=== PATIENT | male | born 1955 | race Caucasian/White ===

== ENCOUNTER 2017-12-03 22:44 | Inpatient (IN) | payer BC ==
[~2017-12-03] VITALS: Ht 185.4 cm; Wt 104.8 kg
[~2017-12-03 22:44] MED LIST: ALBUAER3 INH; DILT0.05 PO; EMTR1TAB4 PO; IPRASOL INH; VENTAER INH; [UNRECOGNIZED DRUG - CODE] PO
[2017-12-04] VITALS (7 sets, daily range): BP systolic 129–150; BP diastolic 81–83; PULSE 90–107; RESP 18–20; TEMP 96.3–98.1; O2SAT 92–94
[2017-12-04] MEDS ORDERED: SODIUM CHLORIDE 0.9% FLUSH 10 ML FLUSH IV FLUSH PRN
[2017-12-04] MEDS ORDERED: ACETAMINOPHEN 325 MG TAB PO PRN
[2017-12-04] MEDS ORDERED: ONDANSETRON HCL 4 MG/2 ML VIAL IVP PRN
[2017-12-04] MEDS: RESP: ALBUTEROL 2.5 MG/IPRATROPIUM 0.5 MG NEB (SCH) NEB ×3 (02:59→16:05)
[2017-12-04] MEDS: RESP: ALBUTEROL 2.5 MG/IPRATROPIUM 0.5 MG NEB (PRN) NEB ×2 (07:11→13:58)
[2017-12-04] MEDS: SODIUM CHLORIDE 0.9% FLUSH 10 ML FLUSH IV FLUSH SCH ×2 (08:53→20:08)
[2017-12-04] MEDS ORDERED: ENOXAPARIN SODIUM 40 MG/0.4 ML SYRINGE SQ SCH (09:00)
--- NOTE | 2017-12-04 09:55 | HHI.HP ---
[facility] Primary Care Physician Timothy Xiong MD Admission Diagnosis Diagnoses: Chief Complaint: Asthma attack Travel History International Travel<30 Days: No Contact w/Intl Traveler <30 Da: No History of Present Illness 62-year-old white male being admitted for acute hypoxic respiratory failure secondary to an asthma attack. Patient reports being in his usual state of health until about sometime yesterday when he began experiencing an asthma attack manifested with increased shortness of breath and coughing. Patient states that he was taking his albuterol nebulizer [id number] to no avail and thus he decided come to the emergency department. He denies having any chest pain. He reports having an oxygen saturation 80s in the emergency department. Denies having any cyanosis of his lips or finger tips. Denies feeling any fevers or chills. In the ER he was given steroids and started on DuoNeb's. Patient states that his last asthma attack has not happened for a long time. Says he's take Symbicort but he thought it would not give good long-term relief. Patient states that he has a past medical history significant for HIV and is on antiviral therapy for this. He says his CD4 count was somewhere in the 400s and is managed by a physician for this. Review of Systems Except as stated in HPI: all other systems reviewed are Neg Past Family Social History Past Medical History Unspecified arrhythmia Allergies: Coded Allergies: No Known Allergies (Unverified , 10/02/17) Family History Patient denies any significant family health history. Social History Says he stopped smoking years ago. Denies illicit drug use. Thinks he got HIV from sexual contact. Physical Exam Vital Signs Vital Signs Date Time Temp Pulse Resp B/P (MAP) Pulse Ox O2 Delivery O2 Flow Rate FiO2 12/04/17 08:00 96.3 90 18 137/83 (101) 93 12/04/17 07:12 93 Nasal Cannula 3.00 12/04/17 04:00 98.0 97 20 139/81 (100) 94 12/04/17 03:00 94 Nasal Cannula 3.00 Physical Exam VS: afebrile GENERAL: NAD, lying in bed, awake, alert SKIN: Warm and dry. EYES: No scleral icterus. No injection or drainage. ENT: No nasal bleeding or discharge. Mucous membranes pink and moist. CARDIOVASCULAR: Regular rate and rhythm. no murmurs RESPIRATORY: No accessory muscle use. Minimal wheezing heard in bilateral lung franco with minimally labored breathing. GASTROINTESTINAL: Abdomen soft, non-tender, nondistended. Extremities: No clubbing, cyanosis, or edema. No obvious deformities. MUSCULOSKELETAL: grossly intact ROM with 5/5 strength in upper and lower extremities proximally; adequate muscle bulk and tone for age and habitus NEUROLOGICAL: Awake and alert. No obvious cranial nerve deficits. No facial droop nor slurred speech noted. PSYCHIATRIC: Appropriate mood and affect; insight and judgment normal. Imaging Independent review the chest x-ray obtained from emergency department and it appears clear. Caprini VTE Risk Assessment Caprini VTE Risk Assessment: Mod/High Risk (score >= 2) Caprini Risk Assessment Model Point Value = 1 Point Value = 2 Point Value = 3 Point Value = 5 Age 41-60 Minor surgery BMI > 25 kg/m2 Swollen legs Varicose veins or History of unexplained or recurrent spontaneous Oral contraceptives or hormone replacement Sepsis (< 1 month) Serious lung disease, including pneumonia (< 1 month) Abnormal pulmonary function Acute myocardial infarction Congestive heart failure (< 1 month) History of inflammatory bowel disease Medical patient at bed rest Age 61-74 Arthroscopic surgery Major open surgery (> 45 min) Laparoscopic surgery (> 45 min) Malignancy Confined to bed (> 72 hours) Immobilizing plaster cast Central venous access Age >= 75 History of VTE Family history of VTE Factor V Leiden Prothrombin [id number] Lupus anticoagulant Anticardiolipin antibodies Elevated serum homocysteine Heparin-induced thrombocytopenia Other congenital or acquired thrombophilia Stroke (< 1 month) Elective arthroplasty Hip, pelvis, or leg fracture Acute spinal cord injury (< 1 month) Prophylaxis Regimen Total Risk Factor Score Risk Level Prophylaxis Regimen 0-1 Low Early ambulation 2 Moderate Order ONE of the following: *Sequential Compression Device (SCD) *Heparin 5000 units SQ BID 3-4 Higher Order ONE of the following medications: *Heparin 5000 units SQ TID *Enoxaparin/Lovenox 40 mg SQ daily (WT < 150 kg, CrCl > 30 mL/min) *Enoxaparin/Lovenox 30 mg SQ daily (WT < 150 kg, CrCl > 10-29 mL/min) *Enoxaparin/Lovenox 30 mg SQ BID (WT < 150 kg, CrCl > 30 mL/min) AND/OR *Sequential Compression Device (SCD) 5 or more Highest Order ONE of the following medications: *Heparin 5000 units SQ TID (Preferred with Epidurals) *Enoxaparin/Lovenox 40 mg SQ daily (WT < 150 kg, CrCl > 30 mL/min) *Enoxaparin/Lovenox 30 mg SQ daily (WT < 150 kg, CrCl > 10-29 mL/min) *Enoxaparin/Lovenox 30 mg SQ BID (WT < 150 kg, CrCl > 30 mL/min) AND *Sequential Compression Device (SCD) Assessment and Plan Assessment and Plan Acute hypoxic respiratory failure secondary to asthma exacerbation - Continue steroids and oxygen and DuoNeb's HIV - Continue home medications Continue home cardizem. Pt can be discharged evening solumedrol and decadron and duoneb dose if clinically stable. Addendum: Patient's hypoxia had resolved and his shortness of breath had also resolved. On reexamination his wheezes were gone. Has met maximal benefit from hospitalization and is clinically stable for discharge. Physician Certification 2 Midnight Certification Type: Admission for Inpatient Services Order for Inpatient Services The services are ordered in accordance with Medicare regulations or non- Medicare payer requirements, as applicable. In the case of services not specified as inpatient-only, they are appropriately provided as inpatient services in accordance with the 2-midnight benchmark. Estimated LOS (days): 2 2 days is the estimated time the patient will need to remain in the hospital, assuming treatment plan goals are met and no additional complications. Post-Hospital Plan: Home Zach Greenwood MD Dec 04, 2017 09:55
[2017-12-04] MEDS ORDERED: methylPREDNISolone SOD SUCC 125 MG/2 ML VIAL IV PUSH ONE ×2 (10:00→18:30)
[2017-12-04] MEDS ORDERED: DILTIAZEM-CD 180 MG CAP ER PO SCH (10:00)
[2017-12-04] MEDS ORDERED: PATIENT OWN MEDICATION (Emtricitabine-Tenofovir Alafenamide (Descovy) 1 TAB) PO SCH (10:15)
[2017-12-04] MEDS ORDERED: NEVIRAPINE 200 MG TAB PO SCH (12:00)
[2017-12-04] MEDS ORDERED: PRED10PA2 PO (18:23)
--- NOTE | 2017-12-04 18:23 | HHI.DCPOC ---
Discharge Care Plan Diagnosis: (1) Asthma exacerbation Goals to Promote Your Health * To prevent worsening of your condition and complications * To maintain your health at the optimal level Directions to Meet Your Goals Take your medications as prescribed Follow your dietary instruction Follow activity as directed Keep your appointments as scheduled Take your immunizations and boosters as scheduled If your symptoms worsen call your PCP, if no PCP go to Urgent Care Center or Emergency Room Smoking is Dangerous to Your Health. Avoid second hand smoke Call the 24-hour hour crisis hotline for domestic abuse at Zach Greenwood MD Dec 04, 2017 18:23
[2017-12-04] MEDS ORDERED: SYMB160A INH (18:24)
[2017-12-04] MEDS ORDERED: DEXAMETHASONE 4 MG TAB PO ONE (19:15)
[2017-12-04] MEDS ORDERED: RESP: ALBUTEROL 2.5 MG/IPRATROPIUM 0.5 MG NEB (SCH) NEB ONE (19:30)
== END 2017-12-04 20:29 | disposition home or self-care (01) | DRG 189 ==
LOC: PHEDDLT 12-04 02:30 → PH3A 12-04 02:40
PROVIDERS: ADMIT Hospitalist; ATTEND Hospitalist
DX: J96.01 Acute respiratory failure with hypoxia (principal); J45.901 Unspecified asthma with (acute) exacerbation; Z21 Asymptomatic human immunodeficiency virus [HIV] infection status; Z87.891 Personal history of nicotine dependence
CPT/HCPCS: 71045; 80053; 82550; 84484; 85025; 85379; 85610; 85730; 93005; 94640; 94664; 96374; J1100; J1650; J2930; J8540